=== PATIENT | male | born 1970 | race Caucasian/White ===

== ENCOUNTER 2019-01-13 11:57 | Emergency (ER) | payer OTHER ==
[~2019-01-13] VITALS: Ht 175.3 cm; Wt 172.4 kg
[2019-01-13] MEDS ORDERED: TETRACAINE HCL 0.5% OPHTHALMIC DROPS 15 ML OP ONE (11:58)
[2019-01-13] MEDS ORDERED: FLUORESCEIN SODIUM 1 MG OPHTHALMIC STRIP OP ONE (11:58)
[2019-01-13 12:05] VITALS: BP_SYST 151
[2019-01-13 13:15] VITALS: BP_SYST 151
== END 2019-01-13 13:15 | disposition home or self-care (01) ==
LOC: SED 11:57
DX: S00.12XA Contusion of left eyelid and periocular area, initial encounter (principal); H57.04 Mydriasis; Y04.0XXA Assault by unarmed brawl or fight, initial encounter; Y93.89 Activity, other specified; Y92.69 Other specified industrial and construction area as the place of occurrence of the external cause; Y99.8 Other external cause status
CPT/HCPCS: 99282